=== PATIENT | female | born 1945 | race Caucasian/White ===

== ENCOUNTER 2018-11-10 17:32 | Emergency (ER) | payer OTHER ==
[~2018-11-10] VITALS: Ht 165.1 cm; Wt 77.1 kg
[2018-11-10] MEDS ORDERED: PRILOSEC 10MG C10 MG PO (17:45)
[2018-11-10] MEDS ORDERED: IBUPROFEN 800800 M1 PO (18:39)
[2018-11-10] MEDS ORDERED: ONDANSETRON HCL4 M2 PO (18:39)
[2018-11-10] MEDS ORDERED: PERCOCET PO (18:39)
[2018-11-10 19:24] VITALS: BP 138/78
== END 2018-11-10 19:25 | disposition home or self-care (01) ==
LOC: M.ERS 17:32
DX: S42.352A Displaced comminuted fracture of shaft of humerus, left arm, initial encounter for closed fracture (principal); S42.212A Unspecified displaced fracture of surgical neck of left humerus, initial encounter for closed fracture; I10 Essential (primary) hypertension; K21.9 Gastro-esophageal reflux disease without esophagitis; W18.39XA Other fall on same level, initial encounter; Y93.89 Activity, other specified; Y92.89 Other specified places as the place of occurrence of the external cause; Y99.8 Other external cause status

== ENCOUNTER → 2018-11-14 | Outpatient (CLI) | payer OTHER ==
[~2018-11-14] MED LIST: IBUPROFEN 800800 M1 PO; ONDANSETRON HCL4 M2 PO; PERCOCET PO; PRILOSEC 10MG C10 MG PO
== END ==
LOC: M.CT 12:30
DX: S42.92XA Fracture of left shoulder girdle, part unspecified, initial encounter for closed fracture (principal); X58.XXXA Exposure to other specified factors, initial encounter; Y93.89 Activity, other specified; Y92.89 Other specified places as the place of occurrence of the external cause; Y99.8 Other external cause status